=== PATIENT | female | born 1965 | race Two or more races ===

== ENCOUNTER 2017-06-26 10:45 | Emergency (ER) | payer MEDICAID, OTHER ==
[~2017-06-26] VITALS: Ht 162.6 cm; Wt 103.0 kg
[2017-06-26 12:16] VITALS: BP 120/90
== END 2017-06-26 12:39 | disposition home or self-care (01) ==
LOC: ER 10:45
DX: S63.502A Unspecified sprain of left wrist, initial encounter (principal); Z88.8 Allergy status to other drugs, medicaments and biological substances; Z88.6 Allergy status to analgesic agent; X50.9XXA Other and unspecified overexertion or strenuous movements or postures, initial encounter; Y93.89 Activity, other specified; Y92.89 Other specified places as the place of occurrence of the external cause; Y99.9 Unspecified external cause status
CPT/HCPCS: 73110